=== PATIENT | female | born 1985 | race Caucasian/White ===

== ENCOUNTER 2019-05-05 10:21 | Outpatient (RCR) | payer BC | END 2019-05-10 | disposition home or self-care (01) | LOC: WCC 10:21 | DX: L97.523 Non-pressure chronic ulcer of other part of left foot with necrosis of muscle (principal); L97.512 Non-pressure chronic ulcer of other part of right foot with fat layer exposed; E10.621 Type 1 diabetes mellitus with foot ulcer; E11.40 Type 2 diabetes mellitus with diabetic neuropathy, unspecified | CPT/HCPCS: 99204 ==

== ENCOUNTER 2019-05-05 11:24 | Outpatient (CLI) | payer BC ==
--- NOTE | 2019-05-06 10:44 | Diagnostic Imaging Report ---
Indication: Cough Comparison: 05/05/2019 2 views of the chest obtained. Findings: Cardiomediastinal silhouette and pulmonary vascularity are within normal limits for age. The diaphragmatic contour is smooth and costophrenic angles are sharp. No pleural effusions are identified. The bones are unremarkable. Impression: No acute disease
== END 2019-05-05 13:24 | disposition home or self-care (01) ==
LOC: RAD 11:24
DX: R05 Cough (principal)
CPT/HCPCS: 71046